=== PATIENT | male | born 1985 | race Caucasian/White ===

== ENCOUNTER 2022-02-13 11:17 | Inpatient (IN) | payer MEDICAID ==
[~2022-02-13] VITALS: Ht 193 cm; Wt 127.0 kg
--- NOTE | 2022-02-13 11:49 | NUR ---
No indication for heparin drip, troponin is <0.02 per lab from [facility].
--- NOTE | 2022-02-13 11:50 | NUR ---
Heparin drip off at this time, aware.
--- NOTE | 2022-02-13 11:59 | NUR ---
Dc heparin drip at this time per Dr. Huynh since no indication.
[2022-02-13 12:18] LABS: BASOPHILS % (AUTO) 0.2 % (0-1); EOSINOPHILS # (AUTO) 0.1 X10'3 (0-0.9); EOSINOPHILS % (AUTO) 1.4 % (0-6); HEMATOCRIT 42.8 % (42.0-52.0); HEMOGLOBIN 14.6 g/dl (14.0-17.9); LYMPHOCYTES # (AUTO) 1.5 X10'3 (1.1-4.8); LYMPHOCYTES % (AUTO) 22.2 % (21-51); MEAN CORPUSCULAR HEMOGLOBIN 30.8 PG (27.0-31.0); MEAN CORPUSCULAR HGB CONC 34.2 g/dL (33.0-36.5); MEAN PLATELET VOLUME 7.2 FL (7.4-10.4); MONOCYTES # (AUTO) 0.5 X10'3 (0-0.9); MONOCYTES % (AUTO) 7.8 % (2-12); NEUTROPHILS # (AUTO) 4.7 X10'3 (1.8-7.7); NEUTROPHILS % (AUTO) 68.4 % (42-75); PLATELET COUNT 168 X10'3 (140-440); RED BLOOD COUNT 4.76 X10'6 (4.70-6.10); WHITE BLOOD COUNT 6.9 X10'3 (4.5-11.0)
[2022-02-13 12:30] LABS: ALANINE AMINOTRANSFERASE 15 U/L (12-78); ALBUMIN 3.5 G/DL (3.4-5.0); ALBUMIN/GLOBULIN RATIO 0.9 (1.1-1.5); ALKALINE PHOSPHATASE 55 IU/L (46-116); ANION GAP 8 (8-16); ASPARTATE AMINO TRANSFERASE 17 U/L (10-37); BILIRUBIN,TOTAL 0.9 MG/DL (0.1-1.0); BLOOD UREA NITROGEN 9 MG/DL (7-18); BUN/CREATININE RATIO 10.7 (5.4-32.0); CALCIUM 8.7 MG/DL (8.5-10.1); CHLORIDE 104 MMOL/L (99-107); CREATININE 0.84 MG/DL (0.60-1.10); GLUCOSE 100 MG/DL (70-104); POTASSIUM 3.8 MMOL/L (3.5-5.1); SODIUM 138 MMOL/L (135-145); TOTAL CARBON DIOXIDE 25.6 MMOL/L (24-32); TOTAL PROTEIN 7.3 G/DL (6.4-8.2); eGFR > 90 ML/MIN
[2022-02-13 15:25] LABS: LIPASE < 50 U/L (73-393)
[2022-02-13] MEDS ORDERED: ondansetron/PF 4mg/2ml inj IV PRN (15:50)
[2022-02-13] MEDS ORDERED: potassium Cl 20 mEq SR tablet PO PRN ×2 (15:50)
[2022-02-13] MEDS ORDERED: mag hydrox/Alum hydrox/simeth 30ml oral suspension PO PRN (15:50)
[2022-02-13] MEDS ORDERED: potassium Cl 40MEQ/1/2NS 520ml 520 ML IV PRN (15:50)
[2022-02-13] MEDS ORDERED: morphine 2 MG/ML inj. syringe IV PRN ×2 (15:50)
[2022-02-13] MEDS ORDERED: diphenhydrAMINE 25mg capsule PO PRN (15:50)
[2022-02-13] MEDS ORDERED: bisacodyl 10mg suppository rectal RC PRN (15:50)
[2022-02-13] MEDS ORDERED: acetaminophen 325mg tablet PO PRN ×2 (15:50)
[2022-02-13] MEDS ORDERED: magnesium 4gm in 100ml NS 100 ML IV PRN (15:50)
[2022-02-13] MEDS ORDERED: magnesium Cl slow-release 64mg tablet PO PRN (15:50)
[2022-02-13] MEDS ORDERED: HYDROcodone/acetaminophen 10/325mg tab PO PRN (15:50)
[2022-02-13] MEDS ORDERED: HYDROcodone/acetaminophen 5mg/325mg tablet PO PRN (15:50)
[2022-02-13] MEDS ORDERED: magnesium hydroxide 30ml (MOM) UD suspension PO PRN (15:50)
[2022-02-13 16:17] LABS: HEMOGLOBIN A1C 5.3 % (4.5-6.2)
--- NOTE | 2022-02-13 17:25 | NUR ---
Patient to MRI.
[2022-02-13 17:55] VITALS: BP 122/82
[2022-02-13] MEDS: normal saline 1000ml 1,000 ML IV SCH (18:24)
--- NOTE | 2022-02-13 18:30 | NUR ---
Patient report given, questions answered & plan of care reviewed with JULITA Ko.
--- NOTE | 2022-02-13 18:53 | NUR ---
Patient in room [facility]. I have received report from JULITA CORDERO and had the opportunity to ask questions and assume patient care. Addendum: 02/13/22 at 1854 by Stefani Rivas RN Amended: Links added.
--- NOTE | 2022-02-13 19:25 | NUR ---
DR ARREOLA NOTIFIED WE RECEIVED PT FROM ER IN ATRIAL FIB ASKED IF HE WANTED THE PT ON TELE, TELE ORDERED, AWARE OF PT'S VITALS AND HEART RATE 90 TO 110 AT THE TIME. UPON RECEIVING THE TELE PT PUT ON TELE NUMBER [id number].
[2022-02-13] MEDS ORDERED: temazepam 15mg capsule PO PRN (19:35)
[2022-02-13] MEDS: K and/or MAG REPLACEMENT MC SCH (20:00)
[2022-02-13] MEDS ORDERED: NO HOME MEDS (20:12)
--- NOTE | 2022-02-13 21:50 | NUR ---
RECIVED CALL FROM TELE PT HEART RATE 150'S PT HAD AWOKEN WITH IT AND SAID HE COULD FEEL IT. DR ARREOLA CALLED AND RECEIVED ORDERS FOR THIS. OF CARDIZEM AND BACK UP ORDERS.
[2022-02-13] MEDS ORDERED: diltiazem 5mg/ml 5ml inj. IV ONE ×2 (22:05)
[2022-02-13] MEDS ORDERED: diltiazem-NS 100mg/100ml 100 ML IV SCH (22:10)
[2022-02-13] MEDS: docusate sod 100mg capsule PO SCH (22:32)
[2022-02-13] MEDS: heparin, porcine 5000 units/ml vial SQ SCH (22:32)
[2022-02-13] MEDS: ciprofloxacin lact 400MG/200ML 200 ML IV SCH (22:33)
[2022-02-13 22:50] VITALS: BP 127/64
--- NOTE | 2022-02-13 22:50 | NUR ---
GLASSBLOWER CAME OVER NOTED BP 127/64 HR 120 15MG CARDIZEM GIVEN TO HIM. PER MD ORDER
[2022-02-13 22:55] VITALS: BP 118/70
[2022-02-13 23:15] VITALS: BP 117/64
[2022-02-13 23:30] VITALS: BP 100/73
--- NOTE | 2022-02-13 23:30 | NUR ---
PT BP 100/73 HR 90'S SAT 96% UNABLE TO GIVE SECOND DOSE OF CARDIZEM DUE TO BP AND TO KEEP HEART RATE BETWEEN 80-90 RANGE PER MD ORDERS.
[2022-02-14] VITALS (15 sets, daily range): BP systolic 101–124; BP diastolic 64–96
[2022-02-14] MEDS: metroNIDAZOLE-Flagyl 500mg/NS 100 ML IV SCH ×4 (00:32→23:55)
--- NOTE | 2022-02-14 01:30 | NUR ---
called tele to see about giving another dose of cardizem then called icu and then Dr Apodaca he is aware was unable to give second dose of caridzem due to Bp. bp increased and pt remains in atrial fib hr 111 with syst bp 111/81. recieved order to give 10mg of iv cardizem.
[2022-02-14] MEDS ORDERED: diltiazem 5mg/ml 5ml inj. IV ONE (01:50)
--- NOTE | 2022-02-14 01:50 | NUR ---
Mine TechnicianDaniel Camacho up to the floor bp 113/74 hr 109 and came in to give Cardizem 10mg as ordered 0200 bp 105/78 hr 103 while he gave it. see other documented vitals on the pt.
--- NOTE | 2022-02-14 03:30 | NUR ---
pt remain in afib rate 99 bp 113/80. no s&S of distress.
[2022-02-14] MEDS: normal saline 1000ml 1,000 ML IV SCH ×3 (04:54→17:08)
--- NOTE | 2022-02-14 05:05 | NUR ---
ADMITTING UP TO GET PT'S WALLET WITH [id number] TO LOCK UP.
[2022-02-14 06:19] LABS: BASOPHILS % (AUTO) 0.4 % (0-1); EOSINOPHILS # (AUTO) 0.1 X10'3 (0-0.9); EOSINOPHILS % (AUTO) 2.2 % (0-6); HEMOGLOBIN 13.8 g/dl (14.0-17.9); MEAN CORPUSCULAR HEMOGLOBIN 31.5 PG (27.0-31.0); MEAN CORPUSCULAR HGB CONC 35.4 g/dL (33.0-36.5); MEAN CORPUSCULAR VOLUME 88.9 FL (78-98); MEAN PLATELET VOLUME 7.2 FL (7.4-10.4); MONOCYTES # (AUTO) 0.6 X10'3 (0-0.9); MONOCYTES % (AUTO) 10.1 % (2-12); NEUTROPHILS # (AUTO) 2.8 X10'3 (1.8-7.7); NEUTROPHILS % (AUTO) 51.3 % (42-75); PLATELET COUNT 156 X10'3 (140-440); RED BLOOD COUNT 4.39 X10'6 (4.70-6.10); RED CELL DISTRIBUTION WIDTH 13.1 % (11.5-14.5); WHITE BLOOD COUNT 5.5 X10'3 (4.5-11.0)
--- NOTE | 2022-02-14 06:25 | NUR ---
Problems reprioritized. Patient report given, questions answered & plan of care reviewed with JULITA SHIRLEY. Addendum: 02/14/22 at 0625 by Stefani Rivas RN Amended: Links added.
[2022-02-14 06:37] LABS: ALANINE AMINOTRANSFERASE 16 U/L (12-78); ALBUMIN/GLOBULIN RATIO 0.7 (1.1-1.5); ALKALINE PHOSPHATASE 48 IU/L (46-116); ANION GAP 10 (8-16); ASPARTATE AMINO TRANSFERASE 11 U/L (10-37); BILIRUBIN,TOTAL 0.9 MG/DL (0.1-1.0); BLOOD UREA NITROGEN 9 MG/DL (7-18); BUN/CREATININE RATIO 10.2 (5.4-32.0); CALCIUM 8.2 MG/DL (8.5-10.1); CHLORIDE 103 MMOL/L (99-107); CHOL/HDL RATIO 4.2 (0.00-4.99); CHOLESTEROL 135 MG/DL (0-200); CREATININE 0.88 MG/DL (0.60-1.10); GLUCOSE 81 MG/DL (70-104); HDL CHOLESTEROL 32 MG/DL (35-60); LDL CHOLESTEROL 98 MG/DL (50-100); MAGNESIUM 1.7 MG/DL (1.5-2.4); PHOSPHORUS 3.9 MG/DL (2.3-4.5); POTASSIUM 3.5 MMOL/L (3.5-5.1); SODIUM 138 MMOL/L (135-145); TOTAL CARBON DIOXIDE 25.1 MMOL/L (24-32); TOTAL PROTEIN 7.1 G/DL (6.4-8.2); TRIGLYCERIDES 50 MG/DL (20-135); eGFR > 90 ML/MIN
--- NOTE | 2022-02-14 07:03 | NUR ---
Patient in room [facility] 345B. I have received report from JULITA ROQUE and had the opportunity to ask questions and assume patient care.
[2022-02-14] MEDS ORDERED: ondansetron/PF 4mg/2ml inj IV PRN (08:10)
[2022-02-14] MEDS ORDERED: morphine 2 MG/ML inj. syringe IV PRN (08:10)
[2022-02-14] MEDS ORDERED: meperidine/PF 25mg/ml syringe IV PRN ×3 (08:10)
[2022-02-14] MEDS ORDERED: proCHLORperazine 10 MG/2 ml inj IV PRN (08:10)
[2022-02-14] MEDS ORDERED: morphine 4 MG/ML inj SYRINge IV PRN (08:10)
[2022-02-14] MEDS ORDERED: ringers solution, lacted 1,000 ML IV SCH (08:10)
[2022-02-14] MEDS: ciprofloxacin lact 400MG/200ML 200 ML IV SCH ×2 (09:58→20:33)
[2022-02-14] MEDS: K and/or MAG REPLACEMENT MC SCH ×2 (11:49→20:00)
[2022-02-14] MEDS ORDERED: diltiazem SR 60mg capsule (twice daily) PO SCH (12:55)
[2022-02-14] MEDS: docusate sod 100mg capsule PO SCH ×2 (13:26→20:33)
[2022-02-14] MEDS: diltiazem 30mg tablet PO SCH ×2 (13:28→20:33)
[2022-02-14] MEDS: heparin, porcine 5000 units/ml vial SQ SCH ×2 (13:29→20:33)
[2022-02-14] MEDS ORDERED: FLU VACC QS2022-23(6MOS UP)/PF 60 MCG/0.5 ML SYRINGE IMVAC ONE (14:00)
--- NOTE | 2022-02-14 18:41 | NUR ---
Problems reprioritized. Patient report given, questions answered & plan of care reviewed with JULITA ROQUE.
--- NOTE | 2022-02-14 18:45 | NUR ---
Patient in room [facility]. I have received report from JULITA SHIRLEY and had the opportunity to ask questions and assume patient care. Addendum: 02/14/22 at 1845 by Stefani Rivas RN Amended: Links added.
[2022-02-15] VITALS (20 sets, daily range): BP systolic 100–137; BP diastolic 55–89
--- NOTE | 2022-02-15 00:50 | NUR ---
BED BATH DONNE WITH SKIN PREP AND LIENS CHANGED ON PT.
[2022-02-15] MEDS: diltiazem 30mg tablet PO SCH ×4 (02:11→20:17)
--- NOTE | 2022-02-15 06:11 | NUR ---
Patient in room [facility] 345B. I have received report from JULITA ROQUE and had the opportunity to ask questions and assume patient care.
--- NOTE | 2022-02-15 06:14 | NUR ---
Problems reprioritized. Patient report given, questions answered & plan of care reviewed with JULITA SHIRLEY. Addendum: 02/15/22 at 0615 by Stefani Rivas RN Amended: Links added.
[2022-02-15] MEDS ORDERED: BUPIVAcaine 0.5% inj/PF 30 ML ONE (06:18)
[2022-02-15 06:46] LABS: BASOPHILS % (AUTO) 0.5 % (0-1); EOSINOPHILS # (AUTO) 0.1 X10'3 (0-0.9); EOSINOPHILS % (AUTO) 2.9 % (0-6); HEMATOCRIT 40.7 % (42.0-52.0); HEMOGLOBIN 13.9 g/dl (14.0-17.9); LYMPHOCYTES # (AUTO) 2.2 X10'3 (1.1-4.8); MEAN CORPUSCULAR HEMOGLOBIN 30.5 PG (27.0-31.0); MEAN CORPUSCULAR HGB CONC 34.1 g/dL (33.0-36.5); MEAN CORPUSCULAR VOLUME 89.3 FL (78-98); MEAN PLATELET VOLUME 7.5 FL (7.4-10.4); MONOCYTES # (AUTO) 0.5 X10'3 (0-0.9); MONOCYTES % (AUTO) 10.7 % (2-12); NEUTROPHILS % (AUTO) 40.9 % (42-75); PLATELET COUNT 159 X10'3 (140-440); RED BLOOD COUNT 4.56 X10'6 (4.70-6.10); RED CELL DISTRIBUTION WIDTH 12.9 % (11.5-14.5)
[2022-02-15] MEDS: metroNIDAZOLE-Flagyl 500mg/NS 100 ML IV SCH ×2 (07:08→18:02)
[2022-02-15] MEDS: normal saline 1000ml 1,000 ML IV SCH ×2 (07:11→18:04)
[2022-02-15 07:33] LABS: ALANINE AMINOTRANSFERASE 10 U/L (12-78); ALBUMIN 2.9 G/DL (3.4-5.0); ALBUMIN/GLOBULIN RATIO 0.8 (1.1-1.5); ALKALINE PHOSPHATASE 45 IU/L (46-116); ANION GAP 8 (8-16); ASPARTATE AMINO TRANSFERASE 16 U/L (10-37); BILIRUBIN,TOTAL 0.6 MG/DL (0.1-1.0); BLOOD UREA NITROGEN 8 MG/DL (7-18); BUN/CREATININE RATIO 9.4 (5.4-32.0); CALCIUM 8.2 MG/DL (8.5-10.1); CHLORIDE 107 MMOL/L (99-107); CREATININE 0.85 MG/DL (0.60-1.10); GLUCOSE 89 MG/DL (70-104); MAGNESIUM 1.9 MG/DL (1.5-2.4); PHOSPHORUS 3.4 MG/DL (2.3-4.5); POTASSIUM 3.6 MMOL/L (3.5-5.1); SODIUM 141 MMOL/L (135-145); TOTAL CARBON DIOXIDE 25.6 MMOL/L (24-32); TOTAL PROTEIN 6.4 G/DL (6.4-8.2); eGFR > 90 ML/MIN
[2022-02-15] MEDS ORDERED: BUPIVAcaine 0.5% inj/PF 30 ml vial IJ ONE (07:37)
[2022-02-15 07:43] LABS: CLARITY,URINE CLEAR (Clear); COLOR,URINE YELLOW (Yellow); GLUCOSE, URINE NEGATIVE (Neg); KETONES,URINE 15 mg/dl (Neg); LEUKOCYTE ESTERASE ,URINE NEGATIVE (Neg); NITRITES, URINE NEGATIVE (Neg); OCCULT BLOOD,URINE NEGATIVE (Neg); PROTEIN,URINE NEGATIVE (Neg); UROBILINOGEN,URINE 0.2 E.U/dL (0.2-1.0)
[2022-02-15] MEDS: K and/or MAG REPLACEMENT MC SCH ×2 (07:44→20:00)
[2022-02-15] MEDS: docusate sod 100mg capsule PO SCH ×2 (07:44→20:17)
[2022-02-15] MEDS: heparin, porcine 5000 units/ml vial SQ SCH ×2 (07:44→20:18)
[2022-02-15 07:51] LABS: UA COLLECTION TYPE NON-SPECIFIED
[2022-02-15] MEDS ORDERED: diltiazem 5mg/ml 5ml inj. IV ONE ×2 (07:55→13:20)
[2022-02-15] MEDS ORDERED: glycopyrrolate 0.2mg/ml inj ONE (07:55)
[2022-02-15] MEDS ORDERED: neostigmine methylsulfate 1 MG/ML 10ml vial ONE (07:55)
[2022-02-15] MEDS ORDERED: sevoflurane 250ml liquid IH ONE (07:55)
[2022-02-15] MEDS ORDERED: dexamethasone sod phosphate 10mg/ml inj ONE (07:55)
[2022-02-15] MEDS ORDERED: midazolam 1 mg/ML 2ml injection ONE (08:04)
[2022-02-15] MEDS ORDERED: FENTANYL CITRATE/PF 50 MCG/1 ML VIAL ONE (08:04)
[2022-02-15] MEDS ORDERED: rocuronium 10mg/ml inj IV ONE (08:18)
[2022-02-15] MEDS ORDERED: propofol inj 20 ML IV ONE (08:18)
[2022-02-15] MEDS ORDERED: LIDOcaine 2% (20mg/ml) 5ml vial ONE (08:18)
[2022-02-15] MEDS ORDERED: ondansetron/PF 4mg/2ml inj ONE (08:19)
[2022-02-15 08:20] LABS: URINE AMPHETAMINE SCREEN NEGATIVE (Neg); URINE BARBITUATE SCREEN NEGATIVE (Neg); URINE BENZODIAZEPINES SCREEN NEGATIVE (Neg); URINE CANNABINOID SCREEN NEGATIVE (Neg); URINE COCAINE SCREEN NEGATIVE (Neg); URINE METHADONE SCREEN NEGATIVE (Neg); URINE OPIATE SCREEN NEGATIVE (Neg); URINE PHENCYCLIDINE SCREEN NEGATIVE (Neg)
[2022-02-15] MEDS ORDERED: meperidine/PF 25mg/ml syringe ONE ×2 (08:24→09:17)
[2022-02-15] MEDS ORDERED: proCHLORperazine 10 MG/2 ml inj IV PRN (09:05)
[2022-02-15] MEDS ORDERED: meperidine/PF 25mg/ml syringe IV PRN ×3 (09:05)
[2022-02-15] MEDS ORDERED: morphine 2 MG/ML inj. syringe IV PRN (09:05)
[2022-02-15] MEDS ORDERED: morphine 4 MG/ML inj SYRINge IV PRN (09:05)
[2022-02-15] MEDS ORDERED: ketorolac trometh. 30mg/ml inj. ONE (09:05)
[2022-02-15] MEDS ORDERED: ondansetron/PF 4mg/2ml inj IV PRN (09:05)
[2022-02-15] MEDS ORDERED: ringers solution, lacted 1,000 ML IV SCH (09:05)
--- NOTE | 2022-02-15 09:15 | NUR ---
Received from OR via , accompanied by Anesthesiologist TRIP AND OR NURSE and report given by Anesthesiolgist. PT IS DROWSY YET ALERT TO VERBAL COMMANDS. 4 LAP SITES WITH EMANI AND GAUZE/TAPE. PT WITH SHIVERS; DEMEROL GIVEN. 20G TO LT AC. Addendum: 02/15/22 at 2673 by Leyla Degroot RN Amended: Links added.
[2022-02-15] MEDS: ciprofloxacin lact 400MG/200ML 200 ML IV SCH ×2 (10:04→20:14)
--- NOTE | 2022-02-15 10:15 | NUR ---
Report called to receiving nurse. Transferred via bed back to pts room where his Belongings were kept during surgery. commercial lines underwriter hooked pt to monitor and gave pt his call light. pt chart returned to nurses station. . Special Issues communicated to receiving nurse. Addendum: 02/15/22 at 1022 by Leyla Degroot RN Amended: Links added.
--- NOTE | 2022-02-15 18:51 | NUR ---
Patient in room [facility]. I have received report from JULITA SHIRLEY and had the opportunity to ask questions and assume patient care. Addendum: 02/15/22 at 1851 by Stefani Rivas RN Amended: Links added.
--- NOTE | 2022-02-15 19:09 | NUR ---
Problems reprioritized. Patient report given, questions answered & plan of care reviewed with JULITA ROQUE.
--- NOTE | 2022-02-15 20:10 | NUR ---
PT DEIENS NEED FOR PAIN MEDS REMAINS IN ATRIAL FIB. POST OP CARE TEACHING DONE WITH HIM ON ATRIAL FIB, AND LAP MARQUITA AND IMPORTANCE OF COUGHING WALKING AND BRINGING STUFF UP. PT WALKING LAPS IN THE [facility]RE[facility].
--- NOTE | 2022-02-16 | NUR ---
PT DENIES NEED FOR PAIN MEDICATION. IV ABX HUNG AND INFUSING. PT TEACHING DONE REGARDING GALLBLADDER SURGERY IMPORTANCE OF COUGHING AND BRINGING UP PHELM. ALSO TEACHING ABOUT SNUFF EFFECTS ON BODY WHEN PT ASKED ABOUT IT.
[2022-02-16] MEDS: metroNIDAZOLE-Flagyl 500mg/NS 100 ML IV SCH ×3 (00:05→16:32)
--- NOTE | 2022-02-16 01:35 | NUR ---
PT TOOK PO CARDIZEM REMAINS IN ATRIAL FIB. RATE 90-110 LABILE. PT CONTINUES TO DENY NEED FOR PAIN MEDS.
[2022-02-16] MEDS: diltiazem 30mg tablet PO SCH ×4 (01:39→20:43)
[2022-02-16 05:59] LABS: BASOPHILS % (AUTO) 0.2 % (0-1); EOSINOPHILS % (AUTO) 0.1 % (0-6); HEMATOCRIT 37.6 % (42.0-52.0); HEMOGLOBIN 12.9 g/dl (14.0-17.9); LYMPHOCYTES # (AUTO) 1.5 X10'3 (1.1-4.8); LYMPHOCYTES % (AUTO) 15.6 % (21-51); MEAN CORPUSCULAR HEMOGLOBIN 30.7 PG (27.0-31.0); MEAN CORPUSCULAR HGB CONC 34.3 g/dL (33.0-36.5); MEAN CORPUSCULAR VOLUME 89.6 FL (78-98); MEAN PLATELET VOLUME 7.4 FL (7.4-10.4); MONOCYTES # (AUTO) 0.8 X10'3 (0-0.9); MONOCYTES % (AUTO) 8.7 % (2-12); NEUTROPHILS # (AUTO) 7.1 X10'3 (1.8-7.7); NEUTROPHILS % (AUTO) 75.4 % (42-75); PLATELET COUNT 173 X10'3 (140-440); RED CELL DISTRIBUTION WIDTH 13.2 % (11.5-14.5); WHITE BLOOD COUNT 9.4 X10'3 (4.5-11.0)
[2022-02-16 06:00] VITALS: BP 124/63
[2022-02-16 06:16] LABS: ALBUMIN/GLOBULIN RATIO 0.9 (1.1-1.5); ALKALINE PHOSPHATASE 46 IU/L (46-116); ANION GAP 6 (8-16); ASPARTATE AMINO TRANSFERASE 27 U/L (10-37); BILIRUBIN,TOTAL 0.5 MG/DL (0.1-1.0); BLOOD UREA NITROGEN 6 MG/DL (7-18); BUN/CREATININE RATIO 6.4 (5.4-32.0); CALCIUM 7.9 MG/DL (8.5-10.1); CHLORIDE 106 MMOL/L (99-107); CREATININE 0.94 MG/DL (0.60-1.10); GLUCOSE 123 MG/DL (70-104); MAGNESIUM 1.6 MG/DL (1.5-2.4); PHOSPHORUS 3.9 MG/DL (2.3-4.5); POTASSIUM 3.8 MMOL/L (3.5-5.1); SODIUM 141 MMOL/L (135-145); TOTAL CARBON DIOXIDE 29.1 MMOL/L (24-32); TOTAL PROTEIN 6.2 G/DL (6.4-8.2); eGFR > 90 ML/MIN
[2022-02-16 06:25] LABS: ALANINE AMINOTRANSFERASE 27 U/L (12-78)
--- NOTE | 2022-02-16 06:59 | NUR ---
Patient in room [facility]A. I have received report from JULITA ROQUE and had the opportunity to ask questions and assume patient care.
--- NOTE | 2022-02-16 07:03 | NUR ---
Problems reprioritized. Patient report given, questions answered & plan of care reviewed with JULITA SHIRLEY. Addendum: 02/16/22 at 0704 by Stefani Rivas RN Amended: Links added.
[2022-02-16] MEDS: K and/or MAG REPLACEMENT MC SCH ×2 (08:30→20:00)
[2022-02-16] MEDS: normal saline 1000ml 1,000 ML IV SCH (08:30)
[2022-02-16] MEDS: heparin, porcine 5000 units/ml vial SQ SCH (08:31)
[2022-02-16] MEDS: docusate sod 100mg capsule PO SCH ×2 (08:31→20:41)
[2022-02-16] MEDS: ciprofloxacin lact 400MG/200ML 200 ML IV SCH ×2 (10:48→20:41)
[2022-02-16 11:00] VITALS: BP 99/50
[2022-02-16 18:00] VITALS: BP 94/43
--- NOTE | 2022-02-16 18:25 | NUR ---
Patient in room [facility]. I have received report from JULITA Zuniga and had the opportunity to ask questions and assume patient care.
--- NOTE | 2022-02-16 18:55 | NUR ---
Problems reprioritized. Patient report given, questions answered & plan of care reviewed with JULITA BARDALES.
[2022-02-16 20:40] VITALS: BP 118/67
[2022-02-16] MEDS: apixaban 5mg tablet PO SCH (20:41)
[2022-02-16 22:00] VITALS: BP 123/78
[2022-02-17] MEDS: metroNIDAZOLE-Flagyl 500mg/NS 100 ML IV SCH ×2 (00:05→07:57)
[2022-02-17] MEDS: normal saline 1000ml 1,000 ML IV SCH (00:06)
[2022-02-17 02:00] VITALS: BP 107/67
[2022-02-17] MEDS: diltiazem 30mg tablet PO SCH ×2 (02:06→07:56)
[2022-02-17 05:55] LABS: BASOPHILS % (AUTO) 0.5 % (0-1); EOSINOPHILS # (AUTO) 0.1 X10'3 (0-0.9); EOSINOPHILS % (AUTO) 1.7 % (0-6); HEMATOCRIT 34.4 % (42.0-52.0); HEMOGLOBIN 11.7 g/dl (14.0-17.9); LYMPHOCYTES # (AUTO) 2.7 X10'3 (1.1-4.8); LYMPHOCYTES % (AUTO) 45.1 % (21-51); MEAN CORPUSCULAR HEMOGLOBIN 30.6 PG (27.0-31.0); MEAN CORPUSCULAR HGB CONC 33.9 g/dL (33.0-36.5); MEAN CORPUSCULAR VOLUME 90.1 FL (78-98); MEAN PLATELET VOLUME 7.6 FL (7.4-10.4); MONOCYTES # (AUTO) 0.6 X10'3 (0-0.9); MONOCYTES % (AUTO) 9.8 % (2-12); NEUTROPHILS # (AUTO) 2.6 X10'3 (1.8-7.7); NEUTROPHILS % (AUTO) 42.9 % (42-75); PLATELET COUNT 147 X10'3 (140-440); RED BLOOD COUNT 3.81 X10'6 (4.70-6.10)
[2022-02-17 06:00] VITALS: BP 126/66
[2022-02-17 06:07] LABS: ALANINE AMINOTRANSFERASE 44 U/L (12-78); ALBUMIN 2.9 G/DL (3.4-5.0); ALKALINE PHOSPHATASE 40 IU/L (46-116); ANION GAP 6 (8-16); ASPARTATE AMINO TRANSFERASE 38 U/L (10-37); BILIRUBIN,TOTAL 0.3 MG/DL (0.1-1.0); BLOOD UREA NITROGEN 11 MG/DL (7-18); BUN/CREATININE RATIO 11.6 (5.4-32.0); CALCIUM 8.3 MG/DL (8.5-10.1); CHLORIDE 107 MMOL/L (99-107); CREATININE 0.95 MG/DL (0.60-1.10); GLUCOSE 104 MG/DL (70-104); MAGNESIUM 1.7 MG/DL (1.5-2.4); PHOSPHORUS 4.5 MG/DL (2.3-4.5); POTASSIUM 3.7 MMOL/L (3.5-5.1); SODIUM 141 MMOL/L (135-145); TOTAL CARBON DIOXIDE 27.8 MMOL/L (24-32); TOTAL PROTEIN 5.9 G/DL (6.4-8.2); eGFR > 90 ML/MIN
--- NOTE | 2022-02-17 07:08 | NUR ---
Problems reprioritized. Patient report given, questions answered & plan of care reviewed with JULITA Gonsalez.
[2022-02-17] MEDS: apixaban 5mg tablet PO SCH (07:56)
[2022-02-17] MEDS: docusate sod 100mg capsule PO SCH (07:57)
[2022-02-17] MEDS: ciprofloxacin lact 400MG/200ML 200 ML IV SCH (09:10)
[2022-02-17 10:00] VITALS: BP 109/67
[2022-02-17] MEDS ORDERED: DILT30TA2 PO (13:05)
[2022-02-17] MEDS ORDERED: APIX5TAB3 PO (13:05)
[2022-02-17] MEDS ORDERED: HYDR-3965 PO (13:05)
--- NOTE | 2022-02-17 14:50 | NUR ---
Pt dc home with dad. pt verbalizes understanding of all DC orders and the importance of following up with Dr Guillermo and Dr Campbell. Pt is A & O x 4. Pt lives in [place] in [facility]. Dad driving him. IV removed intact.
== END 2022-02-17 14:51 | disposition home or self-care (01) | DRG 263 ==
LOC: ER 11:18 → ED HOLD 15:57 → EDBEDREQ 17:02 → SUR 3N 17:55
PROVIDERS: ADMIT Family Medicine; ATTEND Family Medicine
PROC: 0FT44ZZ Resection of Gallbladder, Percutaneous Endoscopic Approach (ICD-10-PCS; principal; 2022-02-15 07:55)
DX: K80.00 Calculus of gallbladder with acute cholecystitis without obstruction (principal); I47.1 Supraventricular tachycardia; K90.49 Malabsorption due to intolerance, not elsewhere classified; Z20.822 Contact with and (suspected) exposure to COVID-19; E66.9 Obesity, unspecified; I48.91 Unspecified atrial fibrillation; F17.220 Nicotine dependence, chewing tobacco, uncomplicated; Z81.8 Family history of other mental and behavioral disorders; Z28.21 Immunization not carried out because of patient refusal; Z71.6 Tobacco abuse counseling; Z68.34 Body mass index [BMI] 34.0-34.9, adult
CPT/HCPCS: 36415; 71045; 74181; 76700; 80053; 80061; 80305; 81003; 82948; 83036; 83690; 83735; 83880; 84100; 84145; 84443; 84484; 85025; 87081; 87811; 90686; 99285; A4215; A4615; A4618; A6258; A6449; A7000; G0378; J0744; J1100; J1644; J1885; J2175; J2250; J2405; J2704; J2710; J3010; J3490; J7030; J7042; J7120; S0020